=== PATIENT | female | born 1975 | race Caucasian/White ===

== ENCOUNTER → 2016-04-23 | Outpatient (CLI) | payer MEDICARE, MEDICAID ==
[~2016-04-23] MED LIST: ABILIFY20 MG PO; AMBIEN 5MG TABLE5 MG PO; ATIVAN 0.50.5 MG/TAB PO; CELEXA 20MG20 MG/TAB PO; DEPAKOTE500 M2 PO; GEODON 40MG40 MG PO; KLONOPIN 0.5MG0.5 MG PO; LAMICTAL150 MG PO; LITHIUM 30300 MG/CAP PO; PREDNISONE20 MG PO; WELLBUTRIN 100100 MG PO; ZITHROMAX Z PA250 MG PO
== END ==
LOC: BHSO 10:29
DX: F31.73 Bipolar disorder, in partial remission, most recent episode manic (principal)

== ENCOUNTER → 2016-05-24 | Outpatient (CLI) | payer MEDICARE, MEDICAID | LOC: BHSO 09:44 | DX: F31.74 Bipolar disorder, in full remission, most recent episode manic (principal) ==

== ENCOUNTER → 2016-07-04 | Outpatient (CLI) | payer MEDICARE, MEDICAID | LOC: BHSO 09:45 | DX: F31.32 Bipolar disorder, current episode depressed, moderate (principal) ==

== ENCOUNTER → 2016-08-09 | Outpatient (CLI) | payer MEDICARE, MEDICAID | LOC: COL.RAD 11:14 | DX: E05.90 Thyrotoxicosis, unspecified without thyrotoxic crisis or storm (principal) | CPT/HCPCS: A9516 ==

== ENCOUNTER → 2016-08-22 | Outpatient (CLI) | payer MEDICARE, MEDICAID | LOC: BHSO 11:14 | DX: F31.73 Bipolar disorder, in partial remission, most recent episode manic (principal) ==

== ENCOUNTER → 2016-10-24 | Outpatient (CLI) | payer MEDICARE, MEDICAID | LOC: BHSO 11:30 | DX: F31.73 Bipolar disorder, in partial remission, most recent episode manic (principal) ==

== ENCOUNTER → 2017-01-04 | Outpatient (CLI) | payer MEDICARE, MEDICAID | LOC: BHSO 10:26 | DX: F43.10 Post-traumatic stress disorder, unspecified (principal) ==

== ENCOUNTER → 2017-02-06 | Outpatient (CLI) | payer MEDICARE, MEDICAID | LOC: BHSO 10:41 | DX: F25.0 Schizoaffective disorder, bipolar type (principal) ==

== ENCOUNTER 2017-03-27 14:18 | Emergency (ER) | payer MEDICARE, MEDICAID ==
[~2017-03-27] VITALS: Ht 167.6 cm; Wt 80.9 kg
[2017-03-27 14:22] VITALS: BP 102/58; TEMP 97.7
[2017-03-27] MEDS ORDERED: VRAYLAR4.5 MG PO (14:27)
[2017-03-27] MEDS ORDERED: SYNTHROID0.112 MG/T PO (14:28)
[2017-03-27] MEDS ORDERED: OSCAL W/VIT D250 MG PO (14:28)
[2017-03-27] MEDS ORDERED: PERCOCET 325 MG1 TA3 PO (14:30)
[2017-03-27] MEDS ORDERED: VENTOLIN0.09 MG IH (14:30)
[2017-03-27 15:20] LABS: BASO % 0.3 % (0.0-2.0); EOS # 0.2 (0.0-0.7); EOS % 3.4 % (0-4.0); GRAN # 4.6 (1.4-6.5); HEMATOCRIT 43.7 % (37.0-47.0); HEMOGLOBIN 14.6 g/dl (12.5-16.0); LYMPH # 1.5 (1.2-3.4); LYMPH % 21.3 % (20.0-51.0); MEAN CELL VOLUME 94 fl (80.0-100.0); MEAN CORPUSCULAR HEMOGLOBIN 32 pg (27.0-31.0); MEAN CORPUSCULAR HGB CONC 33 g/dl (33.0-37.0); MEAN PLATELET VOLUME 9.1 fl (7.4-10.4); MONO # 0.7 (0.1-0.6); MONO % 9.9 % (1.7-9.3); PLATELET COUNT 293 K/mm3 (130-400); RED BLOOD COUNT 4.63 M/mm3 (4.10-5.30); WHITE BLOOD COUNT 7.1 K/mm3 (4.8-10.8)
[2017-03-27 15:30] LABS: ADJUSTED CALCIUM 9.4 mg/dL (8.4-10.2); ALBUMIN 4.1 gm/dL (3.5-5.0); BILIRUBIN,TOTAL 0.3 mg/dL (0.0-1.0); CALCIUM 9.5 mg/dL (8.4-10.2); CREATININE, serum 0.82 mg/dL (0.52-1.25); MAGNESIUM 1.9 mg/dL (1.6-2.3); POTASSIUM 3.6 mmol/L (3.4-5.0); TOTAL PROTEIN 6.9 gm/dL (6.4-8.2)
[2017-03-27 16:29] VITALS: PULSE 84
== END 2017-03-27 16:30 | disposition home or self-care (01) ==
LOC: COL.ER 14:18
PROVIDERS: Nurse Practitioner
DX: G89.18 Other acute postprocedural pain (principal); F31.9 Bipolar disorder, unspecified; F41.9 Anxiety disorder, unspecified; F12.90 Cannabis use, unspecified, uncomplicated; F17.210 Nicotine dependence, cigarettes, uncomplicated; Z86.39 Personal history of other endocrine, nutritional and metabolic disease; Z90.710 Acquired absence of both cervix and uterus; Z98.890 Other specified postprocedural states
CPT/HCPCS: J1100; J2270

== ENCOUNTER → 2017-05-20 | Outpatient (CLI) | payer MEDICARE, MEDICAID ==
[~2017-05-20] MED LIST changes: +OSCAL W/VIT D250 MG PO; +PERCOCET 325 MG1 TA3 PO; +SYNTHROID0.112 MG/T PO; +VENTOLIN0.09 MG IH; +VRAYLAR4.5 MG PO
== END ==
LOC: BHSO 13:18
DX: F43.10 Post-traumatic stress disorder, unspecified (principal)
CPT/HCPCS: G0463

== ENCOUNTER → 2017-07-25 | Outpatient (CLI) | payer MEDICARE, MEDICAID | LOC: COL.LAB 09:48 | DX: R30.0 Dysuria (principal) ==

== ENCOUNTER 2017-07-30 17:13 | Emergency (ER) | payer MEDICARE, MEDICAID ==
[~2017-07-30] VITALS: Ht 170.2 cm; Wt 82.0 kg
[2017-07-30 18:01] LABS: COLLECTION METHOD CLEAN CATCH
[2017-07-30] MEDS ORDERED: NEXIUM 20MG20 MG PO (18:03)
[2017-07-30] MEDS ORDERED: BACTRIM DS 8001 TAB PO (18:03)
[2017-07-30 18:07] LABS: MUCOUS Present /lpf; PH 5 (5-8); URINE APPEARANCE Clear; URINE BACTERIA None Seen /hpf; URINE BILIRUBIN Positive (NEGATIVE); URINE BLOOD Negative (NEGATIVE); URINE COLOR Yellow; URINE GLUCOSE Negative (NEGATIVE); URINE KETONE Trace (NEGATIVE); URINE LEUKOCYTE ESTERASE Negative (NEGATIVE); URINE NITRATE Negative (NEGATIVE); URINE PROTEIN(semi-quant) Negative (NEGATIVE); URINE RBC 0-2 /hpf; URINE UROBILINOGEN Negative (NEGATIVE)
[2017-07-30 18:10] LABS: BASO % 0.6 % (0.0-2.0); EOS # 0.3 (0.0-0.7); EOS % 5.6 % (0-4.0); GRAN # 2.5 (1.4-6.5); GRAN % 49.7 % (42.2-75.2); HEMATOCRIT 45.3 % (37.0-47.0); HEMOGLOBIN 15.5 g/dl (12.5-16.0); LYMPH # 1.8 (1.2-3.4); LYMPH % 34.9 % (20.0-51.0); MEAN CELL VOLUME 89 fl (80.0-100.0); MEAN CORPUSCULAR HEMOGLOBIN 30 pg (27.0-31.0); MEAN CORPUSCULAR HGB CONC 34 g/dl (33.0-37.0); MEAN PLATELET VOLUME 8.8 fl (7.4-10.4); MONO # 0.5 (0.1-0.6); MONO % 9.2 % (1.7-9.3); PLATELET COUNT 336 K/mm3 (130-400); RED BLOOD COUNT 5.12 M/mm3 (4.10-5.30); REDCELL DISTRIBUTION WIDTH-CV 13.1 % (11.5-14.5)
[2017-07-30 18:21] LABS: ALBUMIN 4.1 gm/dL (3.5-5.0); BILIRUBIN,TOTAL 0.3 mg/dL (0.0-1.0); CALCIUM 8.9 mg/dL (8.4-10.2); CREATININE, serum 0.88 mg/dL (0.52-1.25); POTASSIUM 4.3 mmol/L (3.4-5.0)
[2017-07-30] MEDS ORDERED: ZOFRAN 4MG T4 MG/TAB PO (19:10)
[2017-07-30 19:13] VITALS: BP 117/80; PULSE 89; TEMP 98.4
== END 2017-07-30 19:28 | disposition home or self-care (01) ==
LOC: COL.ER 17:13
PROVIDERS: Emergency Medicine
DX: B34.9 Viral infection, unspecified (principal); F31.9 Bipolar disorder, unspecified; F41.9 Anxiety disorder, unspecified; G43.909 Migraine, unspecified, not intractable, without status migrainosus; F17.210 Nicotine dependence, cigarettes, uncomplicated; F12.90 Cannabis use, unspecified, uncomplicated; Z90.710 Acquired absence of both cervix and uterus
CPT/HCPCS: J1885; J7030

== ENCOUNTER → 2017-08-22 | Outpatient (CLI) | payer MEDICARE, MEDICAID ==
[~2017-08-22] MED LIST changes: +BACTRIM DS 8001 TAB PO; +NEXIUM 20MG20 MG PO; +ZOFRAN 4MG T4 MG/TAB PO
== END ==
LOC: BHSO 09:50
DX: F25.0 Schizoaffective disorder, bipolar type (principal)
CPT/HCPCS: G0463

== ENCOUNTER → 2017-10-23 | Outpatient (CLI) | payer MEDICARE, MEDICAID | LOC: BHSO 11:07 | DX: F43.10 Post-traumatic stress disorder, unspecified (principal) | CPT/HCPCS: G0463 ==

== ENCOUNTER → 2017-12-27 | Outpatient (CLI) | payer MEDICARE, MEDICAID | LOC: BHSO 11:25 | DX: F43.10 Post-traumatic stress disorder, unspecified (principal) | CPT/HCPCS: G0463 ==

== ENCOUNTER 2018-05-04 01:04 | Emergency (ER) | payer MEDICARE, MEDICAID ==
[~2018-05-04] VITALS: Ht 167.6 cm; Wt 82.7 kg
[2018-05-04 01:09] VITALS: BP 124/73; TEMP 97.9
[2018-05-04] MEDS ORDERED: CELEBREX50 MG PO (01:39)
[2018-05-04] MEDS ORDERED: PERCOCET 325 MG1 TA3 PO (03:00)
[2018-05-04] MEDS ORDERED: FLEXERIL 1010 MG/TAB PO (03:00)
[2018-05-04 03:15] VITALS: PULSE 77
== END 2018-05-04 03:18 | disposition home or self-care (01) ==
LOC: COL.ER 01:04
DX: S13.4XXA Sprain of ligaments of cervical spine, initial encounter (principal); S20.212A Contusion of left front wall of thorax, initial encounter; F31.9 Bipolar disorder, unspecified; J45.909 Unspecified asthma, uncomplicated; E05.00 Thyrotoxicosis with diffuse goiter without thyrotoxic crisis or storm; V89.2XXA Person injured in unspecified motor-vehicle accident, traffic, initial encounter; F17.210 Nicotine dependence, cigarettes, uncomplicated

== ENCOUNTER → 2018-06-02 | Outpatient (CLI) | payer MEDICARE, MEDICAID ==
[~2018-06-02] MED LIST changes: +CELEBREX50 MG PO; +FLEXERIL 1010 MG/TAB PO
== END ==
LOC: BHSO 13:25
DX: F43.10 Post-traumatic stress disorder, unspecified (principal)
CPT/HCPCS: G0463

== ENCOUNTER → 2018-07-30 | Outpatient (CLI) | payer MEDICARE, MEDICAID | LOC: BHSO 14:01 | DX: F43.10 Post-traumatic stress disorder, unspecified (principal) | CPT/HCPCS: G0463 ==

== ENCOUNTER → 2018-08-15 | Outpatient (CLI) | payer MEDICARE, MEDICAID | LOC: BHSO 14:21 | DX: F43.10 Post-traumatic stress disorder, unspecified (principal) | CPT/HCPCS: G0463 ==

== ENCOUNTER → 2018-09-10 | Outpatient (CLI) | payer MEDICARE, MEDICAID | LOC: BHSO 13:47 | DX: F43.10 Post-traumatic stress disorder, unspecified (principal) | CPT/HCPCS: G0463 ==

== ENCOUNTER → 2018-10-08 | Outpatient (CLI) | payer MEDICARE, MEDICAID | LOC: BHSO 13:59 | DX: F32.9 Major depressive disorder, single episode, unspecified (principal) | CPT/HCPCS: G0463 ==

== ENCOUNTER 2019-02-06 09:32 | Emergency (ER) | payer MEDICARE, MEDICAID ==
[~2019-02-06] VITALS: Ht 167.6 cm; Wt 66.8 kg
[2019-02-06 09:34] VITALS: TEMP 97.7
[2019-02-06] MEDS ORDERED: KLONOPIN 1MG1 MG PO (09:47)
[2019-02-06] MEDS ORDERED: SYNTHROID0.1 MG/TAB PO (09:48)
[2019-02-06] MEDS ORDERED: BRINTELLIX20 PO (09:49)
[2019-02-06] MEDS ORDERED: LATUDA80 MG PO (09:50)
[2019-02-06] MEDS ORDERED: LATUDA20 MG PO (09:50)
[2019-02-06 11:30] VITALS: BP 124/68; PULSE 78
--- NOTE | 2019-02-06 15:24 | NUR ---
BEATA cintron responded to the ED for a social media marketing specialist consult to provide resources for the patient. [employer]FF[employer] REFEREE student verified the patient's address; patient states she will be moving to a new apartment next week. Patient updated demographics. BEATA student provided the [facility] Resource Guide and explained resources to the patient. BEATA student collaborated above information with the patient's nurse.
== END 2019-02-06 11:30 | disposition home or self-care (01) ==
LOC: COL.ER 09:32
DX: M54.2 Cervicalgia (principal); R51 Headache; F17.210 Nicotine dependence, cigarettes, uncomplicated; F31.9 Bipolar disorder, unspecified
CPT/HCPCS: J1170; J2360

== ENCOUNTER 2019-07-25 04:57 | Emergency (ER) | payer MEDICARE, MEDICAID ==
[~2019-07-25] VITALS: Ht 167.6 cm; Wt 66.8 kg
[~2019-07-25 04:57] MED LIST changes: +BRINTELLIX20 PO; +KLONOPIN 1MG1 MG PO; +LATUDA20 MG PO; +LATUDA80 MG PO; +SYNTHROID0.1 MG/TAB PO
[2019-07-25 05:00] VITALS: TEMP 98.8
[2019-07-25 05:42] LABS: COLLECTION METHOD CLEAN CATCH
[2019-07-25 05:51] LABS: MUCOUS Present /lpf; PH 6 (5-8); URINE APPEARANCE Cloudy; URINE BACTERIA Rare /hpf; URINE BILIRUBIN Negative (NEGATIVE); URINE BLOOD Negative (NEGATIVE); URINE COLOR Yellow; URINE GLUCOSE Negative (NEGATIVE); URINE KETONE Negative (NEGATIVE); URINE LEUKOCYTE ESTERASE 2+ (NEGATIVE); URINE NITRATE Negative (NEGATIVE); URINE PROTEIN(semi-quant) Negative (NEGATIVE); URINE UROBILINOGEN Negative (NEGATIVE)
[2019-07-25] MEDS ORDERED: CEPHALEXIN500 M1 PO (06:55)
[2019-07-25 07:06] VITALS: BP 121/90; PULSE 88
== END 2019-07-25 07:16 | disposition home or self-care (01) ==
LOC: COL.ER 04:57
PROVIDERS: Emergency Medicine
DX: N75.0 Cyst of Bartholin's gland (principal); N39.0 Urinary tract infection, site not specified; G43.909 Migraine, unspecified, not intractable, without status migrainosus; E05.00 Thyrotoxicosis with diffuse goiter without thyrotoxic crisis or storm; F17.210 Nicotine dependence, cigarettes, uncomplicated; F31.9 Bipolar disorder, unspecified; Z79.899 Other long term (current) drug therapy; Z90.710 Acquired absence of both cervix and uterus; Z90.89 Acquired absence of other organs
CPT/HCPCS: J1885

== ENCOUNTER 2019-07-27 14:58 | Emergency (ER) | payer MEDICARE, MEDICAID ==
[~2019-07-27] VITALS: Ht 167.6 cm; Wt 65.9 kg
[~2019-07-27 14:58] MED LIST changes: +CEPHALEXIN500 M1 PO
[2019-07-27 15:22] VITALS: BP 108/77; PULSE 97; TEMP 98.7
== END 2019-07-27 16:15 | disposition other institution (70) ==
LOC: COL.ER 14:58
DX: Z20.2 Contact with and (suspected) exposure to infections with a predominantly sexual mode of transmission (principal)
CPT/HCPCS: J0696

== ENCOUNTER 2019-09-10 00:51 | Emergency (ER) | payer MEDICARE, MEDICAID ==
[~2019-09-10] VITALS: Ht 167.6 cm; Wt 69.1 kg
[2019-09-10 01:02] VITALS: BP 132/87; PULSE 104; TEMP 98.7
[2019-09-10 01:26] LABS: COLLECTION METHOD CLEAN CATCH
[2019-09-10 01:43] LABS: BASO # 0.1 (0.0-0.2); BASO % 0.6 % (0.0-2.0); EOS # 0.3 (0.0-0.7); GRAN # 5.8 (1.4-6.5); GRAN % 70.5 % (42.2-75.2); HEMATOCRIT 46.6 % (37.0-47.0); HEMOGLOBIN 15.7 g/dl (12.5-16.0); LYMPH # 1.6 (1.2-3.4); LYMPH % 19.5 % (20.0-51.0); MEAN CELL VOLUME 94 fl (80.0-100.0); MEAN CORPUSCULAR HEMOGLOBIN 32 pg (27.0-31.0); MEAN CORPUSCULAR HGB CONC 34 g/dl (33.0-37.0); MONO # 0.5 (0.1-0.6); MONO % 6.2 % (1.7-9.3); PLATELET COUNT 320 K/mm3 (130-400); RED BLOOD COUNT 4.95 M/mm3 (4.10-5.30); REDCELL DISTRIBUTION WIDTH-CV 12.6 % (11.5-14.5)
[2019-09-10 01:54] LABS: ALBUMIN 4.5 gm/dL (3.5-5.0); BILIRUBIN,TOTAL 0.5 mg/dL (0.0-1.0); CALCIUM 9.2 mg/dL (8.4-10.2); CREATININE, serum 0.78 (0.52-1.25); POTASSIUM 4.1 mmol/L (3.4-5.0); TOTAL PROTEIN 7.9 gm/dL (6.4-8.2)
[2019-09-10 01:58] LABS: AMORPHOUS CRYSTAL Present /uL; MUCOUS Present /lpf; PH 8 (5-8); SQUAMOUS EPITHELIAL 0-2 /hpf; URINE APPEARANCE Turbid; URINE BACTERIA None Seen /hpf; URINE BILIRUBIN Negative (NEGATIVE); URINE BLOOD Negative (NEGATIVE); URINE COLOR Yellow; URINE GLUCOSE Negative (NEGATIVE); URINE KETONE Negative (NEGATIVE); URINE LEUKOCYTE ESTERASE 3+ (NEGATIVE); URINE NITRATE Positive (NEGATIVE); URINE PROTEIN(semi-quant) Negative (NEGATIVE); URINE RBC 0-2 /hpf; URINE TRIPLE PHOSPHATE CRYSTAL Present /hpf; URINE UROBILINOGEN Negative (NEGATIVE)
[2019-09-10] MEDS ORDERED: CEFTIN 250250 MG/TAB PO (02:49)
== END 2019-09-10 03:05 | disposition home or self-care (01) ==
LOC: COL.ER 00:51
PROVIDERS: Emergency Medicine
DX: N39.0 Urinary tract infection, site not specified (principal); J45.909 Unspecified asthma, uncomplicated; G43.909 Migraine, unspecified, not intractable, without status migrainosus; E03.9 Hypothyroidism, unspecified; F31.9 Bipolar disorder, unspecified; F41.9 Anxiety disorder, unspecified; F17.210 Nicotine dependence, cigarettes, uncomplicated; Z90.710 Acquired absence of both cervix and uterus
CPT/HCPCS: J0696; J1885; J2060; J7030

== ENCOUNTER → 2020-08-16 | Outpatient (CLI) | payer MEDICARE, MEDICAID ==
[~2020-08-16] MED LIST changes: +CEFTIN 250250 MG/TAB PO
== END ==
LOC: MC.RAD 15:23
DX: Z12.31 Encounter for screening mammogram for malignant neoplasm of breast (principal); Z98.82 Breast implant status